=== PATIENT | female | born 1940 | race Caucasian/White ===

== ENCOUNTER 2016-09-15 11:11 | Emergency (ER) | payer MEDICARE, MEDICAID ==
[2016-09-15 11:11] VITALS: BMI 43.7
[2016-09-15 11:21] VITALS: TEMP 98.1
[2016-09-15] MEDS ORDERED: OXYCODONE HCL 5 MG TABLET PO ONE ×2 (12:49→16:08)
[2016-09-15] MEDS ORDERED: DIAZEPAM 5 MG TAB PO ONE (12:49)
--- NOTE | 2016-09-15 12:52 | EDPRACDOC ---
<VallecilloSarah voraerik Bhatia - Last Filed: 09/15/16 16:01> - General Information Information Source: Patient - History of Present Illness Onset: 2-3 DAYS AGO HPI: PT STATES APPROX 2-3 DAYS AGO SHE WOKE UP WITH BILATERAL PARASPINAL NECK PAIN JORJE T FELT LIKE A PULLING OR TIGHTENING AND THEN THE NEXT DAY STARTED HAVING HEADACHE AND STATES NOTHING SHE HAS TRIED AT HOME HELPS, STATES HURTS TO TURN/ TWIST HER HEAD. NO FEVERS CHILLS COUGH CONGESTION BODYACHES OR VISION CHANGES AT THIS TIME. Location: Reports: Generalized Pain Quality: Reports: Moderate, Aching (AND TIGHTENING PAIN), Throbbing Modifying Factors: improves with: Movement Associated Signs and Symptoms: Reports: Occasional Headache, Other (NECK PAIN STARTED UPON WAKING 2-3 DAYS AGO THEN HEADACHE YESTERDAY. ) <Kev Martínez - Last Filed: 09/15/16 16:51> - General Information Chief Complaint: Headache Stated Complaint: HEADACHE Time Seen by Provider: 09/15/16 12:28 Home Medications: Home Medications Furosemide [Lasix] 40 mg PO DAILY 01/17/16 Loratadine [Allergy Relief] 10 mg PO DAILY 01/17/16 Meclizine HCl [Antivert] 25 mg PO Q8H PRN 01/17/16 Albuterol Sulfate Nebs [Proventil, Ventolin] 3 ml NEB Q4-6H PRN 09/03/16 Amlodipine Besylate/Benazepril [Lotrel 10-20 mg Capsule] 1 cap PO DAILY CloNIDine (Antihypertensive) [Catapres] 0.1 mg PO BID PRN 09/03/16 Esomeprazole Mag Trihydrate [Nexium] 40 mg PO DAILY 09/03/16 Linaclotide [Linzess] 290 mcg PO DAILY PRN 09/03/16 Lorazepam 1 mg PO HS 09/03/16 Magnesium Oxide [Magox] 400 mg PO DAILY 09/03/16 Meloxicam 7.5 mg PO DAILY 09/03/16 Tramadol HCl [Ultram] 50 mg PO BID 09/03/16 Diazepam [Valium] 5 mg PO Q6 #20 tablet 09/15/16 Nebulizer [Erapid Nebulizer] 1 each MC .UNKNOWN 09/15/16 Ondansetron HCl [Zofran] 4 mg PO TID PRN #14 tablet 09/15/16 Ondansetron HCl [Zofran] 8 mg PO Q8H PRN 09/15/16 Oxycodone Immediate Release [Oxycodone Immediate Release (OxyIR)] 5 - 15 mg PO Q4H PRN #30 tab 09/15/16 Prednisone [Deltasone, Orasone] 20 mg PO DAILY #20 tab 09/15/16 Allergies/Adverse Reactions: Allergies Allergy/AdvReac Type Severity Reaction Status Date / Time Shellfish *RETIRED-02/03/13 Allergy Intermediate SYNCOPE Verified 09/15/16 11:16 [Shellfish] promethazine HCl Allergy Unknown Confusion Verified 09/15/16 11:16 [From Phenergan] BEE STINGS Allergy Severe Hypotension Uncoded 09/15/16 11:16 ED Past Medical History - History Reviewed Yes Nurses notes reviewed and agree except as marked Travel Outside of [place] in the Last 3 Months?: No - Patient Medical History Neurological History: Reports: Cerebrovascular Accident, Seizures Cardiac History: Reports: Hypertension, Stress Test (05/2014 WNL), Hypercholesterolemia Respiratory History: Reports: Asthma, COPD, Chronic Bronchitis GI/ History: Reports: Urinary Tract Infection, Gastroesophageal Reflux, Ulcer (PEPTIC,DUODENAL), Diverticulosis Musculoskeletal History: Reports: Arthritis, Osteoarthritis Psychological History: Reports: Anxiety. Denies: Depression Systemic History: Denies: Cancer Surgical History: Reports: Cholecystectomy, Hysterectomy, Hernia Surgery - Family Medical History Reports: Hypertension (SISTER), Diabetes (SISTER), Cancer (MOTHER), Stroke ( SISTER). Denies: Cardiac Disorders - Social Medical History Smoking Status: Former smoker ETOH: None Substance Abuse: None Lives With: Other Lives In: Home <Kev Martínez - Last Filed: 09/15/16 16:51> EDM Review of Systems - Review of Systems ROS Negative Except as Marked: Yes All systems reviewed and were negative except as marked Constitutional: No Symptoms Reported. negative: Fever, Chills, Weakness, Fatigue, Loss of Appetite Eyes: No Symptoms Reported. negative: Redness, Blurred Vision, Double Vision, Discharge, Pain, Light Sensitive, Photophobia Ears: No Symptoms Reported. negative: Pain, Hearing Loss, Drainage, Ear Pulling Throat: No Symptoms Reported. negative: Pain, Swelling Nose: No Symptoms Reported. negative: Congestion, Bleeding, Discharge, Injection, Swelling, Deformity, Ecchymosis, Tender, Abrasion, Laceration Mouth: No Symptoms Reported. negative: Pain, Drooling Respiratory: No Symptoms Reported. negative: Cough, Brassy Cough, Barky Cough, Shortness of Breath, Wheezing, Hemoptysis Cardiovascular: No Symptoms Reported. negative: Chest Pain, Palpitations, Syncope, Edema, Orthopnea, PND, Skin Mottling, Cyanosis Gastrointestinal: No Symptoms Reported. negative: Pain, Constipation, Nausea, Vomiting, Diarrhea, Melena, Formula Intolerance Genitourinary: No Symptoms Reported. negative: Dysuria, Hematuria, Frequency, Discharge, Bleeding, Testicular Pain, Neurological: Headache. negative: Dizziness, Gait Difficulty, Numbness, Seizure , Speech Difficulty, Weakness Musculoskeletal: Neck (MOSTLY ON SIDES AND RADIATES TO SHOULDERS WORSE WITH MOVING HEAD). negative: Arm, Ankle, Back, Chestwall, Elbow, Forearm, Femur, Foot, Hand, Hip, Knee, Leg, Pelvis, Ribs, Shoulder, Wrist Integumentary: No Symptoms Reported. negative: Itching, Rash, Bruising, Wound Allergic/Immunologic: No Symptoms Reported. negative: Hives, Itching Hematologic: No Symptoms Reported. negative: Lymphadenopathy, Easy Bruising, Easy Bleeding Endocrine: No Symptoms Reported. negative: Weight Gain, Weight Loss Psychiatric: No Symptoms Reported. negative: Anxiety, Depression, Hallucinations, Insomnia, Suicidal <Kev Martínez - Last Filed: 09/15/16 16:51> - Physical Exam Last recorded Vital Signs: Last Vital Signs Temp 98.1 F 09/15/16 11:16 Pulse 93 09/15/16 13:20 Resp 20 09/15/16 13:20 BP 189/91 H 09/15/16 13:20 Pulse Ox 94 09/15/16 13:20 Oxygen Pulse Oxygen Saturation 94 O2 Device Room Air Oxygen Flow Rate Fraction of Inspired Oxygen ( FIO2) - Neurologic Neurologic Comment: Right Left Shoulder Abduction 5/5 5/5 Shoulder Adduction 5/5 5/5 Bicept Flexion 5/5 5/5 Tricept Extention 5/5 5/5 Wrist Dorsiflexion 5/5 5/5 Wrist Volarflexion 5/5 5/5 <Kennedi Vallecillo - Last Filed: 09/15/16 16:01> - Physical Exam Constitutional: No apparent distress, Alert (Awake) Oriented to: Time, Person, Place Last recorded Vital Signs: Last Vital Signs Temp 98.1 F 09/15/16 11:16 Pulse 95 09/15/16 12:01 Resp 18 09/15/16 11:16 BP 189/90 H 09/15/16 12:01 Pulse Ox 95 09/15/16 12:01 Oxygen Pulse Oxygen Saturation 95 O2 Device Room Air Oxygen Flow Rate Fraction of Inspired Oxygen ( FIO2) - HEENT Head: Normal ( normocephalic) Eye Exam: Normal (PERRL, EOMI, Sclera white) Oropharynx: Normal (Pharynx:Moist without exudate,Gums-no swelling) Tympanic Membrane: Normal ENT EAC: Normal TMJ: Normal Nose: No Symptoms Reported (septum midline) Neck: Paraspinal Tenderness (SPASM BILATERAL) - Respiratory/Cardiovascular Respiratory: Normal - CTA (BBS clear to auscultation without adventitious sounds ) Cardiovascular: Normal (RRR without murmur, gallop or rub) - GI Auscultation: Normal (NABS) Palpation: Normal (Soft,No rebound or guarding, non distended) Tenderness: Non tender Villarreal's Sign: Negative - Bladder: Normal - Musculoskeletal Back: Normal (Non-Tender) Extremities: Normal (Normal tone, Pulses 2+ No cyanosis or edema, FROM) - Integumentary Skin: Normal, Warm, Dry Lymphatics: Normal (no adenopathy) - Neurologic Memory Impaired: Normal Motor Function: Normal (Normal tone, Pulses 2+ No cyanosis or edema, FROM) Cranial Nerve: Normal (CN II-X11 intact sensation, strength 5/5) Cerebellar: Normal Mood Description: Normal Perception: Normal <Kev Martínez - Last Filed: 09/15/16 16:51> - Results 09/15/16 14:08 09/15/16 14:08 - EKG EKG #1 EKG Time: 11:20 -: Yes EKG interpreted by me Rate: bpm: 97 [place]: Normal Rhythm: NSR Block: None Hypertrophy: None ST: Normal <Kennedi Vallecillo - Last Filed: 09/15/16 16:01> - Differential Diagnosis Hypertensive, Muscular Contraction, Acute Benign Cephalgia, Other (TORTICOLLIS) - Results 09/15/16 14:08 09/15/16 14:08 - Diagnostic Imaging CT HD/NK Image interpreted by: Radiologist IMPRESSION: 1. No acute intracranial or cervical spine finding. 2. Chronic small vessel disease without progression since 2013. 3. Focally advanced degenerative disc disease at C5-6 with cord mass effect and biforaminal stenosis. MRI CERVICAL SPINE Image interpreted by: Radiologist EXAM: MRI CERVICAL SPINE WITHOUT CONTRAST TECHNIQUE: Multiplanar, multisequence MR imaging of the cervical spine was performed. No intravenous contrast was administered. COMPARISON: CT cervical spine 09/15/2016 FINDINGS: Moderate degenerative cervical spondylosis with multilevel disc disease and facet disease. The overall alignment is maintained. Minimal degenerative posterior subluxation of C5. The vertebral bodies demonstrate normal marrow signal except for endplate reactive changes. The cervical spinal cord is grossly normal. Limited examination due to patient motion. No obvious cord lesions or syrinx. Degenerative changes noted at C1-2 with pannus formation and mild impression on the upper cervical thecal sac. C2-3: No significant findings. C3-4: No significant findings. C4-5: Bulging uncovered disc and small central disc protrusion with mild impression on the ventral thecal sac. Narrowing of the ventral CSF space. Mild foraminal encroachment bilaterally due to uncinate spurring. C5-6: Bulging degenerated annulus, marked osteophytic ridging, uncinate spurring and facet disease contributing to moderate spinal stenosis. The anterior cervical cord is slightly flattened. No obvious cord edema. There is mild bilateral foraminal stenosis. C6-7: Shallow central disc protrusion with mild mass effect on the ventral thecal sac and narrowing of the ventral CSF space. No significant foraminal stenosis. C7-T1: No significant findings. IMPRESSION: 1. Degenerative cervical spondylosis with multilevel disc disease and facet disease. 2. Small central disc protrusion, osteophytic ridging and uncinate spurring at C4-5 contributing to spinal and mild bilateral foraminal stenosis. 3. Bulging degenerated annulus, osteophytic ridging, uncinate spurring and facet disease at C5-6 with moderate spinal stenosis and mild bilateral foraminal stenosis. 4. Shallow central disc protrusion at C6-7 with narrowing of the ventral CSF space. No foraminal stenosis. 5. Limited examination of the cervical cord due to patient motion but no obvious cord lesions or syrinx. <Kev Martínez - Last Filed: 09/15/16 16:51> - Departure Education/Counseling Given To: Patient Education/Counseling Given Regarding: Diagnosis, Treatment, Prognosis <Kennedi Vallecillo - Last Filed: 09/15/16 16:01> Decision Time to Discharge: 16:51 - Departure Disposition: Home <Kev Martínez - Last Filed: 09/15/16 16:51> - Departure Condition: Stable Final Diagnosis: Cervical radiculopathy Instructions: Cervical Radiculopathy (ED) Referrals: Juvencio Galicia MD [Staff Physician] - 09/16/16 8:00 am Prescriptions: Diazepam [Valium] 5 mg PO Q6 #20 tablet Ondansetron HCl [Zofran] 4 mg PO TID PRN #14 tablet PRN Reason: NAUSEA OR VOMITING Oxycodone Immediate Release [Oxycodone Immediate Release (OxyIR)] 5 - 15 mg PO Q4H PRN #30 tab PRN Reason: Pain Prednisone [Deltasone, Orasone] 20 mg PO DAILY #20 tab
[2016-09-15] MEDS ORDERED: SODIUM CHLORIDE 0.9% 3 ML FLUSH FLUSH PRN (13:50)
--- NOTE | 2016-09-15 14:09 | DIRPT ---
CLINICAL DATA: Headache and bilateral paraspinal tenderness and pain for 2 days. EXAM: CT HEAD WITHOUT CONTRAST CT CERVICAL SPINE WITHOUT CONTRAST TECHNIQUE: Multidetector CT imaging of the head and cervical spine was performed following the standard protocol without intravenous contrast. Multiplanar CT image reconstructions of the cervical spine were also generated. COMPARISON: 06/02/[address] FINDINGS: CT HEAD FINDINGS Skull and Sinuses:Negative for fracture or destructive process. The visualized mastoids, middle ears, and imaged paranasal sinuses are clear. Visualized orbits: Negative. Brain: No evidence of acute infarction, hemorrhage, hydrocephalus, or mass lesion/mass effect. 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 Patchy small vessel ischemic gliosis in the cerebral white matter. Normal and stable cerebral volume for age. CT CERVICAL SPINE FINDINGS Negative for acute fracture or subluxation. No prevertebral edema. There is slightly asymmetric fat reticulation around the left paraspinal muscles, but no discernible muscular expansion or edema. No erosive changes in the visualized skeleton. Focally advanced disc narrowing with endplate and uncovertebral ridging at C5-6. At this level there is advanced canal stenosis with cord mass effect and bilateral foraminal stenosis. IMPRESSION: 1. No acute intracranial or cervical spine finding. 2. Chronic small vessel disease without progression since 2013. 3. Focally advanced degenerative disc disease at C5-6 with cord mass effect and biforaminal stenosis. Electronically Signed By: Felipe Arellano M.D. On: 09/15/2016 14:06
[2016-09-15 14:20] LABS: AUTOMATED BASOPHIL 0.4 % (0-2); AUTOMATED EOSINOPHIL 0.4 % (0-5); AUTOMATED LYMPH 15.6 % (17-44); AUTOMATED MONOCYTE 9.5 % (3-10); AUTOMATED NEUTROPHIL 74.1 % (45-76); MPV 8.6 fL (7.4-10.4)
[2016-09-15 14:31] LABS: BLOOD UREA NITROGEN 11 MG/DL (7-17); CALCIUM 9.8 MG/DL (8.4-10.2); CALCULATED OSMOLALITY 260 MOs/Kg (270-290); CHLORIDE 97 mEq/L (98-107); GLUCOSE 109 MG/DL (70-99); SODIUM LEVEL 135 mEq/L (137-146); TOTAL PROTEIN 7.5 G/DL (6.3-8.2)
--- NOTE | 2016-09-15 15:05 | DIRPT ---
CLINICAL DATA: Neck pain and left arm pain for 2 days. No known injury. EXAM: MRI CERVICAL SPINE WITHOUT CONTRAST TECHNIQUE: Multiplanar, multisequence MR imaging of the cervical spine was performed. No intravenous contrast was administered. COMPARISON: CT cervical spine 09/15/2016 FINDINGS: Moderate degenerative cervical spondylosis with multilevel disc disease and facet disease. The overall alignment is maintained. Minimal degenerative posterior subluxation of C5. The vertebral bodies demonstrate normal marrow signal except for endplate reactive changes. The cervical spinal cord is grossly normal. Limited examination due to patient motion. No obvious cord lesions or syrinx. Degenerative changes noted at C1-2 with pannus formation and mild impression on the upper cervical thecal sac. C2-3: No significant findings. C3-4: No significant findings. C4-5: Bulging uncovered disc and small central disc protrusion with mild impression on the ventral thecal sac. Narrowing of the ventral CSF space. Mild foraminal encroachment bilaterally due to uncinate spurring. C5-6: Bulging degenerated annulus, marked osteophytic ridging, uncinate spurring and facet disease contributing to moderate spinal stenosis. The anterior cervical cord is slightly flattened. No obvious cord edema. There is mild bilateral foraminal stenosis. C6-7: Shallow central disc protrusion with mild mass effect on the ventral thecal sac and narrowing of the ventral CSF space. No significant foraminal stenosis. C7-T1: No significant findings. IMPRESSION: 1. Degenerative cervical spondylosis with multilevel disc disease and facet disease. 2. Small central disc protrusion, osteophytic ridging and uncinate spurring at C4-5 contributing to spinal and mild bilateral foraminal stenosis. 3. Bulging degenerated annulus, osteophytic ridging, uncinate spurring and facet disease at C5-6 with moderate spinal stenosis and mild bilateral foraminal stenosis. 4. Shallow central disc protrusion at C6-7 with narrowing of the ventral CSF space. No foraminal stenosis. 5. Limited examination of the cervical cord due to patient motion but no obvious cord lesions or syrinx. Electronically Signed By: Indio Soriano M.D. On: 09/15/2016 15:03
[2016-09-15] MEDS ORDERED: HYDROmorphone 1 MG INJECTION IV ONE (15:17)
[2016-09-15] MEDS ORDERED: ONDANSETRON HCL 4 MG/2 ML VIAL IV ONE (15:17)
[2016-09-15 15:24] LABS: URINE OCCULT BLOOD NEG (NEG/TRACE)
[2016-09-15 15:25] LABS: LEUKOCYTES/URINE NEG (NEGATIVE); NITRITE/URINE NEG (NEGATIVE)
[2016-09-15 15:30] LABS: RBC/URINE 0-2 (0-5)
[2016-09-15 15:31] LABS: AMORPHOUS OCC
[2016-09-15 15:36] VITALS: BP 189/86; PULSE 98
[2016-09-15] MEDS ORDERED: ONDANSETRON HCL 4 MG ODT TAB PO ONE (16:08)
[2016-09-15] MEDS ORDERED: PREDNISONE 20 MG TAB PO ONE (16:08)
[2016-09-15] MEDS ORDERED: SODIUM CHLORIDE 0.9% 3 ML FLUSH FLUSH SCH (18:00)
== END 2016-09-15 17:12 | disposition home or self-care (01) ==
LOC: ED 11:11
DX: M54.12 Radiculopathy, cervical region (principal)
CPT/HCPCS: 36415; 70450; 72125; 72141; 80053; 81001; 85025; 87040; 96374; 96375; 99284; A9270; J1170; J2405; J3490

== ENCOUNTER 2016-10-04 10:51 | Emergency (ER) | payer MEDICARE, MEDICAID ==
[2016-10-04 11:03] VITALS: TEMP 98.2; BMI 43.2
[2016-10-04] MEDS ORDERED: NS 1,000 ML IV ONE ×2 (12:44)
[2016-10-04] MEDS ORDERED: HYDROmorphone 1 MG INJECTION IV ONE (12:44)
--- NOTE | 2016-10-04 12:46 | EDPRACDOC ---
- General Information Chief Complaint: Abdominal Pain Stated Complaint: PAIN, ABDOMINAL Time Seen by Provider: 10/04/16 11:32 Information Source: Patient Mode Of Arrival: Ambulance Home Medications: Home Medications Furosemide [Lasix] 40 mg PO DAILY 01/17/16 Loratadine [Allergy Relief] 10 mg PO DAILY 01/17/16 Meclizine HCl [Antivert] 25 mg PO Q8H PRN 01/17/16 Albuterol Sulfate Nebs [Proventil, Ventolin] 3 ml NEB Q4-6H PRN 09/03/16 Amlodipine Besylate/Benazepril [Lotrel 10-20 mg Capsule] 1 cap PO DAILY CloNIDine (Antihypertensive) [Catapres] 0.1 mg PO BID PRN 09/03/16 Esomeprazole Mag Trihydrate [Nexium] 40 mg PO DAILY 09/03/16 Lorazepam 1 mg PO HS 09/03/16 Magnesium Oxide [Magox] 400 mg PO DAILY 09/03/16 Meloxicam 7.5 mg PO DAILY 09/03/16 Tramadol HCl [Ultram] 50 mg PO BID 09/03/16 Nebulizer [Erapid Nebulizer] 1 each MC .UNKNOWN 09/15/16 Ciprofloxacin HCl [Cipro] 500 mg PO BID #20 tab 10/04/16 Hydrocodone Bit/Acetaminophen [Hydrocodon-Acetaminophen 5-325] 1 tab PO Q4H PRN #10 tab 10/04/16 Metoclopramide HCl [Reglan] 5 mg PO TID PRN 10/04/16 Metronidazole [Flagyl] 500 mg PO TID #30 tab 10/04/16 Allergies/Adverse Reactions: Allergies Allergy/AdvReac Type Severity Reaction Status Date / Time Shellfish *RETIRED-02/03/13 Allergy Intermediate SYNCOPE Verified 09/15/16 11:16 [Shellfish] promethazine HCl Allergy Unknown Confusion Verified 09/15/16 11:16 [From Phenergan] BEE STINGS Allergy Severe Hypotension Uncoded 09/15/16 11:16 - History of Present Illness Onset: YESTERDAY HPI: DIARRHEA APPEARANCE OF COFFEE GROUNDS AND SLIMY SINCE YESTERDAY. 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 PT DID HAVE STOMACH ULCERS MANY YEARS AGO Adult Abdominal History: Female Abdominal History: Reports: UTI - Treatment Prior to ED Arrival Reported Medications/Treatment [employer] [facility] Treatment BLS IV Yes ED Past Medical History - History Reviewed Yes Nurses notes reviewed and agree except as marked - Patient Medical History Neurological History: Reports: Cerebrovascular Accident, Seizures Cardiac History: Reports: Hypertension, Stress Test (05/2014 WNL), Hypercholesterolemia Respiratory History: Reports: Asthma, COPD, Chronic Bronchitis GI/ History: Reports: Urinary Tract Infection, Gastroesophageal Reflux, Ulcer (PEPTIC,DUODENAL), Diverticulosis Musculoskeletal History: Reports: Arthritis, Osteoarthritis Psychological History: Reports: Anxiety. Denies: Depression Systemic History: Denies: Cancer Surgical History: Reports: Cholecystectomy, Hysterectomy, Hernia Surgery - Family Medical History Reports: Hypertension (SISTER), Diabetes (SISTER), Cancer (MOTHER), Stroke ( SISTER). Denies: Cardiac Disorders - Social Medical History Smoking Status: Former smoker EDM Review of Systems - Review of Systems ROS Negative Except as Marked: Yes All systems reviewed and were negative except as marked Respiratory: No Symptoms Reported Cardiovascular: No Symptoms Reported Genitourinary: No Symptoms Reported Neurological: No Symptoms Reported Musculoskeletal: No Symptoms Reported - Physical Exam Constitutional: Alert (Awake), No apparent distress Oriented to: Time, Person, Place Last recorded Vital Signs: Last Vital Signs Temp 98.2 F 10/04/16 10:59 Pulse 99 10/04/16 14:04 Resp 18 10/04/16 14:04 BP 161/66 10/04/16 14:04 Pulse Ox 93 10/04/16 14:04 Oxygen Pulse Oxygen Saturation 93 O2 Device Room Air Oxygen Flow Rate Fraction of Inspired Oxygen ( FIO2) - HEENT Head: Normal ( normocephalic) Eye Exam: Normal (PERRL, EOMI, Sclera white) Oropharynx: Normal (Pharynx:Moist without exudate,Gums-no swelling) Nose: No Symptoms Reported (septum midline) Neck: Normal (FROM, trachea at midline) - Respiratory/Cardiovascular Respiratory: Normal - CTA (BBS clear to auscultation without adventitious sounds ) Cardiovascular: Normal (RRR without murmur, gallop or rub) - GI Auscultation: Normal (NABS) Palpation: Normal (Soft,No rebound or guarding, non distended) Tenderness: Diffuse, Moderate. negative: Guarding, Rebound, Rigidity - Musculoskeletal Back: Normal (Non-Tender) Extremities: Normal (Normal tone, Pulses 2+ No cyanosis or edema, FROM) - Integumentary Skin: Normal, Warm, Dry Lymphatics: Normal (no adenopathy) - Neurologic Memory Impaired: Normal Motor Function: Normal (Normal tone, Pulses 2+ No cyanosis or edema, FROM) Cranial Nerve: Normal (CN II-X11 intact sensation, strength 5/5) Cerebellar: Normal Mood Description: Normal Perception: Normal - Results 10/04/16 13:20 10/04/16 13:20 WBC 9.5 xk/uL (3.8-10.8) 10/04/16 13:20 RBC 4.98 xM/uL (4.20-5.40) 10/04/16 13:20 Hgb 14.7 g/dL (12.0-16.0) 10/04/16 13:20 Hct 43.6 % (36-47) 10/04/16 13:20 MCV 88 fL (81-99) 10/04/16 13:20 MCH 29.6 pg (27-32) 10/04/16 13:20 MCHC 33.8 g/dl (33-36) 10/04/16 13:20 RDW 14.6 % (11.5-14.5) H 10/04/16 13:20 Plt Count 274 xk/uL (130-400) 10/04/16 13:20 MPV 9.0 fL (7.4-10.4) 10/04/16 13:20 Neut % (Auto) 84.1 % (45-76) H 10/04/16 13:20 Lymph % (Auto) 9.0 % (17-44) L 10/04/16 13:20 [place] % (Auto) 4.7 % (3-10) 10/04/16 13:20 Eos % (Auto) 1.6 % (0-5) 10/04/16 13:20 Baso % (Auto) 0.6 % (0-2) 10/04/16 13:20 Absolute Neuts (auto) 7.98 xk/uL (1.7-8.2) 10/04/16 13:20 Absolute Lymphs (auto) 0.86 xk/uL (0.65-4.75) 10/04/16 13:20 PT 11.1 SEC (9.2-11.2) 10/04/16 13:20 INR 1.1 10/04/16 13:20 APTT 26.4 SEC (22-35) 10/04/16 13:20 Sodium 134 mEq/L (137-146) L 10/04/16 13:20 Potassium 3.7 mEq/L (3.5-5.1) 10/04/16 13:20 Chloride 100 mEq/L (98-107) 10/04/16 13:20 Carbon Dioxide 25 mMOL/L (22-33) 10/04/16 13:20 Anion Gap 13 mEq/L (8-16) 10/04/16 13:20 BUN 16 MG/DL (7-17) 10/04/16 13:20 Creatinine 0.70 MG/DL (0.52-1.04) 10/04/16 13:20 Estimated GFR (MDRD) > 60 mL/min (>=60) 10/04/16 13:20 Glucose 98 mg/dL (70-99) 10/04/16 13:20 Calculated Osmolality 259 MOs/Kg (270-290) L 10/04/16 13:20 Lactic Acid 0.7 mEq/L (0.7-2.1) 10/04/16 13:39 Calcium 9.6 MG/DL (8.4-10.2) 10/04/16 13:20 Corrected Calcium 9.7 MG/DL (8.4-10.2) 10/04/16 13:20 Total Bilirubin 0.7 MG/DL (0.2-1.3) 10/04/16 13:20 AST 23 IU/L (14-36) 10/04/16 13:20 ALT 44 IU/L (9-52) 10/04/16 13:20 Alkaline Phosphatase 77 IU/L (55-165) 10/04/16 13:20 Troponin I < 0.01 ng/mL (<.04) 10/04/16 13:20 Zjj-X-Jdalyshcsyy Pept 925 pg/mL (0-900) H 10/04/16 13:20 Total Protein 7.2 G/DL (6.3-8.2) 10/04/16 13:20 Albumin 3.9 G/DL (3.5-5.0) 10/04/16 13:20 Lipase 34 U/L (23-300) 10/04/16 13:20 Urine Color Yellow 10/04/16 13:00 Urine Clarity Cldy 10/04/16 13:00 Urine pH 7.0 (5.0-8.0) 10/04/16 13:00 Ur Specific [place] 1.010 (1.003-1.035) 10/04/16 13:00 Urine Protein 1+ (NEG/TRACE) H 10/04/16 13:00 Urine Glucose (UA) Neg (NEGATIVE) 10/04/16 13:00 Urine Ketones Neg (NEGATIVE) 10/04/16 13:00 Urine Occult Blood 1+ (NEG/TRACE) H 10/04/16 13:00 Urine Nitrite Neg (NEGATIVE) 10/04/16 13:00 Urine Bilirubin Neg (NEGATIVE) 10/04/16 13:00 Urine Urobilinogen <2.0 MG/DL (0-1) 10/04/16 13:00 Ur Leukocyte Esterase 2+ (NEGATIVE) H 10/04/16 13:00 Urine RBC 10-20 (0-5) H 10/04/16 13:00 Urine WBC Tntc (0-5) H 10/04/16 13:00 Urine WBC Clumps Present (NONE) H 10/04/16 13:00 Ur Epithelial Cells 4+ 10/04/16 13:00 Urine Bacteria 1+ (NEG/FEW) H 10/04/16 13:00 Urine Mucus Occ (NEG/OCC) 10/04/16 13:00 Blood Type O NEGATIVE 10/04/16 13:20 Antibody Screen Negative 10/04/16 13:20 Lab Results 10/04/16 10/04/16 10/04/16 13:39 13:20 13:20 WBC 9.5 RBC 4.98 Hgb 14.7 Hct 43.6 MCV 88 MCH 29.6 MCHC 33.8 RDW 14.6 H Plt Count 274 MPV 9.0 Neut % (Auto) 84.1 H Lymph % (Auto) 9.0 L [place] % (Auto) 4.7 Eos % (Auto) 1.6 Baso % (Auto) 0.6 Absolute Neuts (auto) 7.98 Absolute Lymphs (auto) 0.86 PT 11.1 INR 1.1 APTT 26.4 Sodium Potassium Chloride Carbon Dioxide Anion Gap BUN Creatinine Estimated GFR (MDRD) Glucose Calculated Osmolality Lactic Acid 0.7 Calcium Corrected Calcium Total Bilirubin AST ALT Alkaline Phosphatase Troponin I Jme-T-Sfuapfxiwke Pept Total Protein Albumin Lipase Urine Color Urine Clarity Urine pH Ur Specific [place] Urine Protein Urine Glucose (UA) Urine Ketones Urine Occult Blood Urine Nitrite Urine Bilirubin Urine Urobilinogen Ur Leukocyte Esterase Urine RBC Urine WBC Urine WBC Clumps Ur Epithelial Cells Urine Bacteria Urine Mucus Blood Type Antibody Screen 10/04/16 10/04/16 10/04/16 13:20 13:20 13:00 WBC RBC Hgb Hct MCV MCH MCHC RDW Plt Count MPV Neut % (Auto) Lymph % (Auto) [place] % (Auto) Eos % (Auto) Baso % (Auto) Absolute Neuts (auto) Absolute Lymphs (auto) PT INR APTT Sodium 134 L Potassium 3.7 Chloride 100 Carbon Dioxide 25 Anion Gap 13 BUN 16 Creatinine 0.70 Estimated GFR (MDRD) > 60 Glucose 98 Calculated Osmolality 259 L Lactic Acid Calcium 9.6 Corrected Calcium 9.7 Total Bilirubin 0.7 AST 23 ALT 44 Alkaline Phosphatase 77 Troponin I < 0.01 Ota-D-Hyztiyezxxa Pept 925 H Total Protein 7.2 Albumin 3.9 Lipase 34 Urine Color Yellow Urine Clarity Cldy Urine pH 7.0 Ur Specific [place] 1.010 Urine Protein 1+ H Urine Glucose (UA) Neg Urine Ketones Neg Urine Occult Blood 1+ H Urine Nitrite Neg Urine Bilirubin Neg Urine Urobilinogen <2.0 Ur Leukocyte Esterase 2+ H Urine RBC 10-20 H Urine WBC Tntc H Urine WBC Clumps Present H Ur Epithelial Cells 4+ Urine Bacteria 1+ H Urine Mucus Occ Blood Type O NEGATIVE Antibody Screen Negative - EKG EKG #1 EKG Time: 12:52 -: Yes EKG interpreted by me Rate: bpm: 111 [place]: Normal Rhythm: ST Block: None Hypertrophy: None ST: Normal Comments: NORMAL EKG Decision Time to Discharge: 15:09 - Departure Yes I personally saw and evaluated the patient. Disposition: Home Condition: Stable Final Diagnosis: Colitis UTI (urinary tract infection) Qualifiers: Urinary tract infection type: acute cystitis Hematuria presence: with hematuria Qualified Code(s): N30.01 - Acute cystitis with hematuria Instructions: Acute Abdominal Pain (ED), Urinary Tract Infection in Women (ED) , Dysuria, Colitis (ED) Education/Counseling Given To: Patient Education/Counseling Given Regarding: Diagnosis Referrals: None,No Provider [Primary Care Provider] - One Week Prescriptions: No Action Furosemide [Lasix] 40 mg PO DAILY Meclizine HCl [Antivert] 25 mg PO Q8H PRN PRN Reason: Dizziness Loratadine [Allergy Relief] 10 mg PO DAILY Lorazepam 1 mg PO HS Esomeprazole Mag Trihydrate [Nexium] 40 mg PO DAILY Amlodipine Besylate/Benazepril [Lotrel 10-20 mg Capsule] 1 cap PO DAILY CloNIDine (Antihypertensive) [Catapres] 0.1 mg PO BID PRN PRN Reason: FOR SBP >160 Meloxicam 7.5 mg PO DAILY Magnesium Oxide [Magox] 400 mg PO DAILY Tramadol HCl [Ultram] 50 mg PO BID Albuterol Sulfate Nebs [Proventil, Ventolin] 3 ml NEB Q4-6H PRN PRN Reason: Shortness Of Breath Nebulizer [Erapid Nebulizer] 1 each MC .UNKNOWN Metoclopramide HCl [Reglan] 5 mg PO TID PRN PRN Reason: Nausea
[2016-10-04] MEDS ORDERED: Pharmacy Review for Metformin - IV Contrast Given SCH (13:00)
[2016-10-04 13:28] LABS: AUTOMATED BASOPHIL 0.6 % (0-2); AUTOMATED EOSINOPHIL 1.6 % (0-5); AUTOMATED MONOCYTE 4.7 % (3-10); AUTOMATED NEUTROPHIL 84.1 % (45-76)
--- NOTE | 2016-10-04 13:28 | DIRPT ---
CLINICAL DATA: Chest, abdominal pain EXAM: PORTABLE CHEST 1 VIEW COMPARISON: None. FINDINGS: The heart size and mediastinal contours are within normal limits. Both lungs are clear. The visualized skeletal structures are unremarkable. IMPRESSION: No active disease. Electronically Signed By: Riya Marie On: 10/04/2016 13:25
[2016-10-04 13:32] LABS: LEUKOCYTES/URINE 2+ (NEGATIVE); NITRITE/URINE NEG (NEGATIVE); URINE OCCULT BLOOD 1+ (NEG/TRACE); WBC/URINE TNTC (0-5)
[2016-10-04 13:44] LABS: BLOOD UREA NITROGEN 16 MG/DL (7-17); CALC CORRECTED 9.7 MG/DL (8.4-10.2); CALCIUM 9.6 MG/DL (8.4-10.2); CALCULATED OSMOLALITY 259 MOs/Kg (270-290); CHLORIDE 100 mEq/L (98-107); GLUCOSE 98 mg/dL (70-99); SODIUM LEVEL 134 mEq/L (137-146); TOTAL PROTEIN 7.2 G/DL (6.3-8.2)
[2016-10-04 13:46] LABS: PARTIAL THROMB. TIME 26.4 SEC (22-35); PT-INR 1.1
[2016-10-04] MEDS ORDERED: CEFTRIAXONE 1 GM in D5W 100 ML IV ONE (14:16)
--- NOTE | 2016-10-04 15:02 | DIRPT ---
CLINICAL DATA: Diffuse abdominal pain, diarrhea EXAM: CT ABDOMEN AND PELVIS WITH CONTRAST TECHNIQUE: Multidetector CT imaging of the abdomen and pelvis was performed using the standard protocol following bolus administration of intravenous contrast. CONTRAST: 100 mL Isovue 370 COMPARISON: 12/12/2015 FINDINGS: Lower chest: Lung bases are clear. Normal heart size. Hepatobiliary: Normal liver. Prior cholecystectomy. Pancreas: Normal. Spleen: Normal. Adrenals/Urinary Tract: Normal adrenal glands. Normal kidneys. Normal bladder. Stomach/Bowel: Bowel wall thickening involving the distal ileum and ascending colon with air-fluid level. No pneumatosis, pneumoperitoneum or portal venous gas. No abdominal or pelvic free fluid. Vascular/Lymphatic: Normal caliber abdominal aorta with atherosclerosis. No lymphadenopathy. Other: No fluid collection or hematoma. Musculoskeletal: No acute osseous abnormality. No lytic or sclerotic osseous lesion. Degenerative disc disease with disc height loss most severe at L4-5 with bilateral facet arthropathy and foraminal narrowing. IMPRESSION: 1. Bowel wall thickening involving the distal ileum and ascending colon with air-fluid levels concerning for enterocolitis secondary to an infectious or inflammatory etiology. 2. Lumbar spine spondylosis. Electronically Signed By: Riya Marie On: 10/04/2016 15:00
[2016-10-04] MEDS ORDERED: CIPROFLOXACIN HCL 500 MG TAB PO ONE (15:09)
[2016-10-04] MEDS ORDERED: METRONIDAZOLE 500 MG TAB PO ONE (15:09)
[2016-10-04 15:35] VITALS: BP 187/98; PULSE 105
== END 2016-10-04 15:30 | disposition home or self-care (01) ==
LOC: ED 10:51
DX: K52.9 Noninfective gastroenteritis and colitis, unspecified (principal); N30.01 Acute cystitis with hematuria
CPT/HCPCS: 36415; 71010; 74177; 80053; 81001; 83605; 83690; 83880; 84484; 85025; 85610; 85730; 86850; 86900; 86901; 87077; 87086; 93005; 96361; 96365; 96375; 99284; A9270; A9698; J0696; J1170; J7060; J3490

== ENCOUNTER 2016-10-05 07:23 | Emergency (ER) | payer MEDICARE, MEDICAID ==
[2016-10-05] MEDS ORDERED: Levofloxacin 750 mg/150 ml D5W 750 MG/150 ML RTU IV ONE (07:34)
[2016-10-05] MEDS ORDERED: NS 1,000 ML IV ONE (07:34)
[2016-10-05] MEDS ORDERED: Metronidazole 500 mg/100 ml 500 MG/100 ML RTU IV ONE (07:34)
[2016-10-05] MEDS ORDERED: MORPHINE 4 MG/ML INJECTION IV ONE (07:35)
[2016-10-05] MEDS ORDERED: ONDANSETRON HCL 4 MG/2 ML VIAL IV ONE (07:35)
--- NOTE | 2016-10-05 07:38 | EDPRACDOC ---
- General Information Stated Complaint: ABDOMINAL PAIN Time Seen by Provider: 10/05/16 07:24 Information Source: Patient Mode Of Arrival: Ambulance Home Medications: Home Medications Furosemide [Lasix] 40 mg PO DAILY 01/17/16 Loratadine [Allergy Relief] 10 mg PO DAILY 01/17/16 Meclizine HCl [Antivert] 25 mg PO Q8H PRN 01/17/16 Albuterol Sulfate Nebs [Proventil, Ventolin] 3 ml NEB Q4-6H PRN 09/03/16 Amlodipine Besylate/Benazepril [Lotrel 10-20 mg Capsule] 1 cap PO DAILY CloNIDine (Antihypertensive) [Catapres] 0.1 mg PO BID PRN 09/03/16 Esomeprazole Mag Trihydrate [Nexium] 40 mg PO DAILY 09/03/16 Lorazepam 1 mg PO HS 09/03/16 Magnesium Oxide [Magox] 400 mg PO DAILY 09/03/16 Meloxicam 7.5 mg PO DAILY 09/03/16 Tramadol HCl [Ultram] 50 mg PO BID 09/03/16 Nebulizer [Erapid Nebulizer] 1 each MC .UNKNOWN 09/15/16 Ciprofloxacin HCl [Cipro] 500 mg PO BID #20 tab 10/04/16 Hydrocodone Bit/Acetaminophen [Hydrocodon-Acetaminophen 5-325] 1 tab PO Q4H PRN #10 tab 10/04/16 Metoclopramide HCl [Reglan] 5 mg PO TID PRN 10/04/16 Metronidazole [Flagyl] 500 mg PO TID #30 tab 10/04/16 Allergies/Adverse Reactions: Allergies Allergy/AdvReac Type Severity Reaction Status Date / Time Shellfish *RETIRED-02/03/13 Allergy Intermediate SYNCOPE Verified 10/05/16 07:39 [Shellfish] promethazine HCl Allergy Unknown Confusion Verified 10/05/16 07:39 [From Phenergan] BEE STINGS Allergy Severe Hypotension Uncoded 10/05/16 07:39 - 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 THE PT WAS HERE YESTERDAY AND DX' D WITH COLITIS AND AN UTI. PT DID NOT GET ANY OF HER MEDS FILLED. THE PT CONTINUES TO HAVE PAIN AND DIARRHEA AND NAUSEA. PT SAID THAT SHE JUST GOT A SUGAR GLIDER A PET 1 WEEK AGO. PT ALSO REPORTS THAT HER STOOL HAS BEEN BLACK CHARCOAL. 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 Denies: Depression Systemic History: Denies: Cancer Surgical History: Reports: Cholecystectomy, Hysterectomy, Hernia Surgery - Family Medical History Reports: Hypertension (SISTER), Diabetes (SISTER), Cancer (MOTHER), Stroke ( SISTER). Denies: Cardiac Disorders - Social Medical History Smoking Status: Former smoker ETOH: None Substance Abuse: None Lives In: Home EDM Review of Systems - Review of Systems ROS Negative Except as Marked: Yes All systems reviewed and were negative except as marked Gastrointestinal: Diarrhea, Nausea, Pain, Vomiting - Physical Exam Constitutional: Alert (Awake), No apparent distress Oriented to: Time, Person, Place Last recorded Vital Signs: Last Vital Signs Temp 98.9 F 10/05/16 09:01 Pulse 114 10/05/16 09:01 Resp 18 10/05/16 09:01 BP 126/70 10/05/16 09:01 Pulse Ox 94 10/05/16 09:01 Oxygen Pulse Oxygen Saturation 94 O2 Device Room Air Oxygen Flow Rate Fraction of Inspired Oxygen ( FIO2) - HEENT Head: Normal ( normocephalic) Eye Exam: Normal (PERRL, EOMI, Sclera white) Oropharynx: Normal (Pharynx:Moist without exudate,Gums-no swelling) ENT EAC: Normal TMJ: Normal Nose: No Symptoms Reported (septum midline) Neck: Normal (FROM, trachea at midline) - Respiratory/Cardiovascular Respiratory: Normal - CTA Cardiovascular: Normal - GI Auscultation: Normal (NABS) Palpation: Normal (Soft,No rebound or guarding, non distended) Tenderness: Diffuse, Mild Villarreal's Sign: Negative - Musculoskeletal Back: Normal (Non-Tender) Extremities: Normal (Normal tone, Pulses 2+ No cyanosis or edema, FROM) - Integumentary Skin: Normal, Warm, Dry Lymphatics: Normal (no adenopathy) - Neurologic Memory Impaired: Normal Motor Function: Normal (Normal tone, Pulses 2+ No cyanosis or edema, FROM) Cranial Nerve: Normal (CN II-X11 intact sensation, strength 5/5) Cerebellar: Normal Mood Description: Normal Thought: Coherent Perception: Normal - Re-evaluation Re-evaluation 1 Re-evaluation Time: 09:35 (IMPROVED) - Results 10/05/16 08:14 10/05/16 08:14 WBC 9.1 xk/uL (3.8-10.8) 10/05/16 08:14 RBC 5.03 xM/uL (4.20-5.40) 10/05/16 08:14 Hgb 14.8 g/dL (12.0-16.0) 10/05/16 08:14 Hct 43.6 % (36-47) 10/05/16 08:14 MCV 87 fL (81-99) 10/05/16 08:14 MCH 29.5 pg (27-32) 10/05/16 08:14 MCHC 34.0 g/dl (33-36) 10/05/16 08:14 RDW 14.7 % (11.5-14.5) H 10/05/16 08:14 Plt Count 243 xk/uL (130-400) 10/05/16 08:14 MPV 8.7 fL (7.4-10.4) 10/05/16 08:14 Neut % (Auto) 85.8 % (45-76) H 10/05/16 08:14 Lymph % (Auto) 8.7 % (17-44) L 10/05/16 08:14 [place] % (Auto) 5.0 % (3-10) 10/05/16 08:14 Eos % (Auto) 0.1 % (0-5) 10/05/16 08:14 Baso % (Auto) 0.4 % (0-2) 10/05/16 08:14 Absolute Neuts (auto) 7.74 xk/uL (1.7-8.2) 10/05/16 08:14 Absolute Lymphs (auto) 0.73 xk/uL (0.65-4.75) 10/05/16 08:14 Sodium 134 mEq/L (137-146) L 10/05/16 08:14 Potassium 3.4 mEq/L (3.5-5.1) L 10/05/16 08:14 Chloride 99 mEq/L (98-107) 10/05/16 08:14 Carbon Dioxide 25 mMOL/L (22-33) 10/05/16 08:14 Anion Gap 13 mEq/L (8-16) 10/05/16 08:14 BUN 14 MG/DL (7-17) 10/05/16 08:14 Creatinine 0.70 MG/DL (0.52-1.04) 10/05/16 08:14 Estimated GFR (MDRD) > 60 mL/min (>=60) 10/05/16 08:14 Glucose 122 mg/dL (70-99) H 10/05/16 08:14 Calculated Osmolality 260 MOs/Kg (270-290) L 10/05/16 08:14 Lactic Acid 1.0 mEq/L (0.7-2.1) 10/05/16 08:14 Calcium 9.8 MG/DL (8.4-10.2) 10/05/16 08:14 Corrected Calcium 10.2 MG/DL (8.4-10.2) 10/05/16 08:14 Total Bilirubin 0.5 MG/DL (0.2-1.3) 10/05/16 08:14 AST 29 IU/L (14-36) 10/05/16 08:14 ALT 42 IU/L (9-52) 10/05/16 08:14 Alkaline Phosphatase 78 IU/L (55-165) 10/05/16 08:14 Total Protein 7.2 G/DL (6.3-8.2) 10/05/16 08:14 Albumin 3.6 G/DL (3.5-5.0) 10/05/16 08:14 Urine Color Yellow 10/05/16 08:42 Urine Clarity Clear 10/05/16 08:42 Urine pH 6.0 (5.0-8.0) 10/05/16 08:42 Ur Specific [place] 1.015 (1.003-1.035) 10/05/16 08:42 Urine Protein 1+ (NEG/TRACE) H 10/05/16 08:42 Urine Glucose (UA) Neg (NEGATIVE) 10/05/16 08:42 Urine Ketones Neg (NEGATIVE) 10/05/16 08:42 Urine Occult Blood 1+ (NEG/TRACE) H 10/05/16 08:42 Urine Nitrite Neg (NEGATIVE) 10/05/16 08:42 Urine Bilirubin Neg (NEGATIVE) 10/05/16 08:42 Urine Urobilinogen <2.0 MG/DL (0-1) 10/05/16 08:42 Ur Leukocyte Esterase Neg (NEGATIVE) 10/05/16 08:42 Urine RBC 2-5 (0-5) 10/05/16 08:42 Urine WBC 0-2 (0-5) 10/05/16 08:42 Urine Bacteria 1+ (NEG/FEW) H 10/05/16 08:42 Urine Mucus Sm amt (NEG/OCC) 10/05/16 08:42 Microbiology 10/05/16 08:00 Stool Consistency (ISABELLA) - Final Stool Stool Mucus (ISABELLA) - Final Clostridium difficile (PCR) - Final NEGATIVE A single negative test for C. difficile indicates the likelihood that this organism is causing the diarrheal illness is extremely low. Therefore, repeat testing is strongly discouraged. If a new diarrheal illness occurs more than 7 days after the initial negative test, then sending a single repeat specimen may be indicated. ([employer] C. difficile/Epi by PCR: Performance characteristics have not been established for patients <2 years of age - per visitor services specialist limitations.) Clostridium difficile 027 (PCR) - Final PRESUMPTIVE NEGATIVE (For in vitro diagnostic use only. 027-NAP1-BI results are NOT intended to guide treatment of C. difficile infections. (Infection Control Hosp Epidemiol 2010;31:431-455)) 10/05/16 08:00 Campylobacter Antigen Assay - Final Stool NEGATIVE ("NORMAL" value = "NEGATIVE".) 10/05/16 08:00 Stool for WBCs - Final Stool Lab Results 10/05/16 10/05/16 10/05/16 08:42 08:14 08:14 WBC 9.1 RBC 5.03 Hgb 14.8 Hct 43.6 MCV 87 MCH 29.5 MCHC 34.0 RDW 14.7 H Plt Count 243 MPV 8.7 Neut % (Auto) 85.8 H Lymph % (Auto) 8.7 L [place] % (Auto) 5.0 Eos % (Auto) 0.1 Baso % (Auto) 0.4 Absolute Neuts (auto) 7.74 Absolute Lymphs (auto) 0.73 Sodium Potassium Chloride Carbon Dioxide Anion Gap BUN Creatinine Estimated GFR (MDRD) Glucose Calculated Osmolality Lactic Acid 1.0 Calcium Corrected Calcium Total Bilirubin AST ALT Alkaline Phosphatase Total Protein Albumin Urine Color Yellow Urine Clarity Clear Urine pH 6.0 Ur Specific [place] 1.015 Urine Protein 1+ H Urine Glucose (UA) Neg Urine Ketones Neg Urine Occult Blood 1+ H Urine Nitrite Neg Urine Bilirubin Neg Urine Urobilinogen <2.0 Ur Leukocyte Esterase Neg Urine RBC 2-5 Urine WBC 0-2 Urine Bacteria 1+ H Urine Mucus amt 10/05/16 08:14 WBC RBC Hgb Hct MCV MCH MCHC RDW Plt Count MPV Neut % (Auto) Lymph % (Auto) [place] % (Auto) Eos % (Auto) Baso % (Auto) Absolute Neuts (auto) Absolute Lymphs (auto) Sodium 134 L Potassium 3.4 L Chloride 99 Carbon Dioxide 25 Anion Gap 13 BUN 14 Creatinine 0.70 Estimated GFR (MDRD) > 60 Glucose 122 H Calculated Osmolality 260 L Lactic Acid Calcium 9.8 Corrected Calcium 10.2 Total Bilirubin 0.5 AST 29 ALT 42 Alkaline Phosphatase 78 Total Protein 7.2 Albumin 3.6 Urine Color Urine Clarity Urine pH Ur Specific [place] Urine Protein Urine Glucose (UA) Urine Ketones Urine Occult Blood Urine Nitrite Urine Bilirubin Urine Urobilinogen Ur Leukocyte Esterase Urine RBC Urine WBC Urine Bacteria Urine Mucus - Additional Information CT REVIEWED FROM YESTERDAY. Decision Time to Discharge: 09:35 - Departure Yes I personally saw and evaluated the patient. Disposition: Home Condition: Fair Final Diagnosis: UTI (urinary tract infection), Acute colitis Instructions: Urinary Tract Infection in Women (ED), Colitis (ED) Education/Counseling Given To: Patient Education/Counseling Given Regarding: Diagnosis, Treatment, Follow Up Referrals: None,No Provider [NonStaff] - One Week Prescriptions: No Action Furosemide [Lasix] 40 mg PO DAILY Meclizine HCl [Antivert] 25 mg PO Q8H PRN PRN Reason: Dizziness Loratadine [Allergy Relief] 10 mg PO DAILY Lorazepam 1 mg PO HS Esomeprazole Mag Trihydrate [Nexium] 40 mg PO DAILY Amlodipine Besylate/Benazepril [Lotrel 10-20 mg Capsule] 1 cap PO DAILY CloNIDine (Antihypertensive) [Catapres] 0.1 mg PO BID PRN PRN Reason: FOR SBP >160 Meloxicam 7.5 mg PO DAILY Magnesium Oxide [Magox] 400 mg PO DAILY Tramadol HCl [Ultram] 50 mg PO BID Albuterol Sulfate Nebs [Proventil, Ventolin] 3 ml NEB Q4-6H PRN PRN Reason: Shortness Of Breath Nebulizer [Erapid Nebulizer] 1 each MC .UNKNOWN Metoclopramide HCl [Reglan] 5 mg PO TID PRN PRN Reason: Nausea Ciprofloxacin HCl [Cipro] 500 mg PO BID #20 tab Hydrocodone Bit/Acetaminophen [Hydrocodon-Acetaminophen 5-325] 1 tab PO Q4H PRN #10 tab PRN Reason: Pain Metronidazole [Flagyl] 500 mg PO TID #30 tab Additional Instructions: TAKE MEDS PRESCRIBED
[2016-10-05 07:40] VITALS: BMI 43.7
[2016-10-05] MEDS ORDERED: METRONIDAZOLE IV ONE (07:59)
[2016-10-05 08:30] LABS: AUTOMATED BASOPHIL 0.4 % (0-2); AUTOMATED EOSINOPHIL 0.1 % (0-5); AUTOMATED LYMPH 8.7 % (17-44); AUTOMATED NEUTROPHIL 85.8 % (45-76); MPV 8.7 fL (7.4-10.4)
[2016-10-05 08:40] LABS: BLOOD UREA NITROGEN 14 MG/DL (7-17); CALC CORRECTED 10.2 MG/DL (8.4-10.2); CALCIUM 9.8 MG/DL (8.4-10.2); CALCULATED OSMOLALITY 260 MOs/Kg (270-290); CHLORIDE 99 mEq/L (98-107); GLUCOSE 122 mg/dL (70-99); SODIUM LEVEL 134 mEq/L (137-146); TOTAL PROTEIN 7.2 G/DL (6.3-8.2)
[2016-10-05 08:58] LABS: LEUKOCYTES/URINE NEG (NEGATIVE); NITRITE/URINE NEG (NEGATIVE); URINE OCCULT BLOOD 1+ (NEG/TRACE); WBC/URINE 0-2 (0-5)
[2016-10-05 09:01] VITALS: TEMP 98.9
[2016-10-05 11:03] VITALS: BP 137/83; PULSE 88
== END 2016-10-05 10:59 | disposition home or self-care (01) ==
LOC: ED 07:23
DX: N39.0 Urinary tract infection, site not specified (principal); K52.9 Noninfective gastroenteritis and colitis, unspecified; I10 Essential (primary) hypertension; E78.00 Pure hypercholesterolemia, unspecified; K21.9 Gastro-esophageal reflux disease without esophagitis; F41.9 Anxiety disorder, unspecified; J44.9 Chronic obstructive pulmonary disease, unspecified; J45.909 Unspecified asthma, uncomplicated; Z86.73 Personal history of transient ischemic attack (TIA), and cerebral infarction without residual deficits; Z79.899 Other long term (current) drug therapy
CPT/HCPCS: 36415; 80053; 81001; 83605; 83630; 85025; 87045; 87046; 87427; 87449; 87493; 96365; 96366; 96375; 99283; J1956; J2270; J2405; J3490